=== PATIENT | female | born 1990 | race Caucasian/White ===

== ENCOUNTER 2018-11-14 07:11 | Emergency (ER) | payer OTHER ==
[2018-11-14 07:29] VITALS: BP 108/56
--- NOTE | 2018-11-14 08:22 | UC ---
Nausea/Vomiting/Diarrhea HPI - HPI Summary HPI Summary: 2 DAYS AGO DEVELOPED SOME GENERAL MALAISE AND LOWER ABDOMINAL PAIN. LAST NIGHT ONSET OF WATERY DIARRHEA. GOING AT LEAST EVERY HOUR. THIS MORNING NOTICED SOME BLOOD ON THE TOILET PAPER WHEN SHE WIPED. NO FEVER. NO NAUSEA/VOMITING. RECENTLY TRAVEL IN A PLANE BACK FROM [place]. - History of Current Complaint Chief Complaint: UCGI Stated Complaint: DIARRHEA Time Seen by Provider: 11/14/18 07:31 Hx Obtained From: Patient Hx Last Menstrual Period: 10/26/18 Onset/Duration: Gradual Onset, Lasting Days, Still Present Timing: Constant Severity Initially: Moderate Severity Currently: Moderate Pain Intensity: 3 Pain Scale Used: 0-10 Numeric Location: Diffuse Character: Sharp Aggravating Factor(s): Nothing Alleviating Factor(s): Nothing Nausea/Vomiting Presence: None Diarrhea Presence: Yes Diarrhea Frequency: Every 15-60 minutes Diarrhea Duration: 12-24 hours Diarrhea Characteristics: Watery - Allergies/Home Medications Allergies/Adverse Reactions: Allergies Allergy/AdvReac Type Severity Reaction Status Date / Time No Known Allergies Allergy Verified 11/14/18 07:29 Home Medications: Home Medications Levonorgestrel-Ethin Estradiol [Lutera-28 Tablet] 1 tab PO DAILY WITH MEAL 11/14 [History Confirmed 11/14/18] Spironolactone 100 mg PO DAILY WITH MEAL 11/14/18 [History Confirmed 11/14/18] PMH/Surg Hx/FS Hx/Imm Hx Previously Healthy: Yes - Surgical History Surgical History: None - Family History Known Family History: Positive: Non-Contributory - Social History Alcohol Use: Occasionally Substance Use Type: Marijuana Substance Use Comment - Amount & Last Used: edibles Smoking Status (MU): Never Smoked Tobacco Review of Systems All Other Systems Reviewed And Are Negative: Yes Constitutional: Positive: Negative Skin: Positive: Negative Respiratory: Positive: Negative Cardiovascular: Positive: Negative Gastrointestinal: Positive: Abdominal Pain, Diarrhea. Negative: Vomiting, Nausea Genitourinary: Positive: Negative Physical Exam Triage Information Reviewed: Yes Appearance: Well-Appearing, No Pain Distress, Well-Nourished Vital Signs: Initial Vital Signs Temp 97.7 F 11/14/18 07:20 Pulse 87 11/14/18 07:20 Resp 18 11/14/18 07:20 BP 108/56 11/14/18 07:20 Pulse Ox 99 11/14/18 07:20 Vital Signs Reviewed: Yes Eyes: Positive: Conjunctiva Clear ENT: Positive: Hearing grossly normal, Pharynx normal, TMs normal Neck: Positive: Supple, Nontender, No Lymphadenopathy Respiratory Exam: Normal Cardiovascular Exam: Normal Abdomen Description: Positive: Soft, Other: - MILDLY TENDER DIFFUSELY. NO REBOUND OR RIGIDITY. Negative: CVA Tenderness (R), CVA Tenderness (L), Distended, Guarding Bowel Sounds: Positive: Present Musculoskeletal: Positive: No Edema Neurological: Positive: Alert Psychological: Positive: Age Appropriate Behavior Skin: Negative: Rashes Naus/Vom/Diarrhea Course/Dx - Course Course Of Treatment: SYMPTOMS ARE LIKELY DUE TO A VIRAL INFECTION AND SHOULD BE SELF LIMITED. ENCOURAGED FLUID INTAKE. BLAND DIET. TO ER IF SX WORSEN. - Differential Dx/Diagnosis Provider Diagnosis: Acute diarrhea Condition At Discharge: Stable Discharge - Sign-Out/Discharge Documenting (check all that apply): Patient Departure All imaging exams completed and their final reports reviewed: No Studies - Discharge Plan Condition: Stable Disposition: HOME Patient Education Materials: Gastroenteritis (ED), Acute Diarrhea (ED) Referrals: [facility] [Provider Group] - If Needed Additional Instructions: YOUR SYMPTOMS SHOULD IMPROVE OVER THE NEXT SEVERAL DAYS. ENSURE ADEQUATE HYDRATION. CLEAR LIQUIDS, BLAND DIET. AVOID CAFFEINE, DAIRY, GREASY, SPICY FOODS. ONCE YOU ARE TOLERATING CLEAR LIQUIDS YOU CAN ADVANCE TO SIMPLE, BLAND FOODS. GO TO THE ER WITHOUT FAIL IF YOU FEEL FAINT OR DEVELOP FEVER, WORSENING PAIN, GEO BLOOD PER RECTUM, INABILITY TO KEEP ANYTHING DOWN BY MOUTH, DIZZINESS, SHORTNESS OF BREATH, RAPID HEART BEAT OR ANY OTHER CONCERNING SYMPTOMS. - Billing Disposition and Condition Condition: STABLE Disposition: Home
== END 2018-11-14 08:08 | disposition home or self-care (01) ==
LOC: UCEAST 07:11
DX: R19.7 Diarrhea, unspecified (principal); R10.30 Lower abdominal pain, unspecified; R53.81 Other malaise
CPT/HCPCS: 99201; G0463